=== PATIENT | female | born 1955 | race Caucasian/White ===

== ENCOUNTER 2022-10-19 09:54 | Observation (INO) ==
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
[2022-10-19] MEDS ORDERED: MoRPHine SULFATE 4 MG/ML 1 ML CARP\\VIAL IV STA (10:04)
[2022-10-19] MEDS ORDERED: ONDANSETRON INJ 2 MG/ML 2 ML VIAL IV STA (10:04)
[2022-10-19] MEDS ORDERED: SODIUM CHLORIDE 0.9% 500 ML IV SCH (10:15)
[2022-10-19 10:33] LABS: Basophils # (auto) 0.04 K/uL (0-0.2); Basophils % (auto) 0.7 %; Eosinophils # (auto) 0.09 K/uL (0-0.50); Eosinophils % (auto) 1.6 %; Immature Granulocytes # (auto) 0.02 K/uL (0.01-0.20); Immature Granulocytes % (auto) 0.3 %; Lymphocytes # (auto) 1.97 K/uL (1.2-3.4); Lymphocytes % (auto) 34.3 %; Mean Corpuscular Hemoglobin 32.8 pg (25.0-34.0); Mean Corpuscular Hgb Conc 34.2 g/dL (32.0-36.0); Mean Platelet Volume 10.2 fL (9.4-12.4); Monocytes # (auto) 0.64 K/uL (0.11-0.59); Monocytes % (auto) 11.1 %; Neutrophils # (auto) 2.98 K/uL (1.40-6.50); Platelet Count 230 K/uL (130-400); RDW Coefficient of Variation 12.8 % (11.5-14.5); RDW Standard Deviation 45.2 fL (36.4-46.3); Red Blood Count 3.96 M/uL (4.20-5.40); White Blood Count 5.74 K/ul (4.8-10.8)
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
[2022-10-19 10:48] LABS: BUN Creatinine Ratio 16.9 (10-20); Calcium 8.8 mg/dl (8.6-10.3); Creatinine Clr Calc Pharmacy 67.2 ml/min; Est GFR (African American) 101.4 ml/min; Est GFR (Non-African American) 87.5 ml/min; Potassium 3.4 mmol/L (3.5-5.1)
--- NOTE | 2022-10-19 10:49 | XRay Report ---
XR shoulder LT min 2V routine CLINICAL HISTORY: pain post fall TECHNIQUE: 2 views of the left shoulder were obtained. Comparison: None available at the time of this dictation. FINDINGS: There is no evidence of an acute fracture. Joint spaces are well-preserved. The overlying soft tissue s are unremarkable. The visualized portions of the lungs are clear. IMPRESSION: No evidence of acute osseous injury. ACT 112: Negative or not required by law. Electronically signed by: Hunter Villanueva M.D. 10/19/2022 10:47 AM
[2022-10-19] MEDS ORDERED: MoRPHine SULFATE 10 MG/ML CARP/VIAL IV STA (11:13)
[2022-10-19] MEDS ORDERED: KETOROLAC TROMETHAMINE 15 MG/ML VIAL IV ONE (11:42)
--- NOTE | 2022-10-19 11:51 | Orthopedic Consultation ---
Date of Consultation October 19, 2022 Assessment & Plan (1) Volar Lagos's fracture of left radius: Discussed with the patient that this is an unstable pattern injury that is notoriously difficult to treat without surgery. Therefore surgery was the recommended treatment. Plan will be for an open reduction internal fixation with a volar plate. I reviewed the risks and benefits of the surgery, alternatives, and expected outcomes. She elects to proceed with surgery. She would like to have the surgery done as soon as possible. I told her we could do it this afternoon when she is cleared by anesthesia given that she had some food and drink this morning. Plan on admitting her overnight for pain control. Given the vomiting she had with the morphine she was prescribed in the emergency room I think she would greatly benefit from a regional block in order to decrease the amount of narcotics needed after surgery. She understands that her hand and fingers will be numb after the surgery because of the block and therefore we will not be able to specifically assess the state of her nerves until the block is worn off. I did discuss the possibility of doing a concurrent carpal tunnel release, however patient would not like to have this done, and we will respect her wishes. She understands however that it may become necessary to do a carpal tunnel release in the future depending on her symptoms. History of Present Illness Reason for Consultation: Left distal radius fracture Requesting Physician: Dr. Paul History of Present Illness 67-year-old female, [id number], with a medical history significant for osteopenia, tripped and fell while walking this morning landing onto her left hand and wrist. She had immediate onset of pain and deformity. She presented to the emergency room where x-rays were obtained demonstrating a volar Lagos pattern distal radius fracture with displacement. Orthopedics was consulted for further evaluation. Patient was seen and examined in the emergency room. She reports numbness and tingling in all of her fingers. She has had some on and off wrist pain in the past and rare episodes of numbness, but has never had any nerve testing or had a formal diagnosis of carpal tunnel syndrome. She lives alone. Last meal was this morning when she had some cinnamon toast before 9 AM as well as some coffee and water. Allergies Allergy/AdvReac Type Severity Reaction Status Date / Time gluten Allergy Severe CELIAC Verified 05/18/21 09:39 DISEASE ciprofloxacin Allergy Intermediate FACIAL Verified 05/18/21 09:39 SWELLING aspirin AdvReac Intermediate Gastrointestinal Verified 05/18/21 09:39 Upset fentanyl AdvReac Intermediate VOMITING Verified 05/18/21 09:39 FOR 12 HOURS midazolam AdvReac Intermediate VOMITING Verified 05/18/21 09:39 FOR 12 HOURS propoxyphene [From Darvon] AdvReac Intermediate Gastrointestinal Verified 05/18/21 09:39 Upset Home Medications Medication Instructions Recorded Confirmed Type Multiple Vitamin & Suppliments 1 dose PO DAILY 03/09/21 05/18/21 History Patient History Medical History No pertinent past medical history Family History Brother Alcohol abuse Dementia Brother Congenital kidney disease Prostate cancer Hypertension Father Prostate cancer Hypertension Myocardial infarction Grandmother (Maternal) Gall bladder disease Myocardial infarction Aunt Breast cancer Uncle Alcohol abuse Denies family history of Ovarian cancer Colorectal cancer Social History Smoking Status: Never smoker Second Hand Exposure: Yes; Do You Dip or Chew Tobacco: No; Hx Alcohol Use: No Hx Substance Use: No Preferred Language: Bahraini Communication Ability: Effective Visual Impairment: No Limitations Hearing Ability: Normal Manager Department Required: No marital status: Single Current Living Situation: Alone current occupational status: employed Feels Safe at Home: No Childhood Exposure to Second-Hand Smoke: Yes Diet: gluten free, lactose free and regular Dental Care, Regularly: No Physical Activity Frequency: Daily Seatbelt Use: always Sunscreen Use: No Assistive Devices: Glasses Physical Exam Physical Exam: On exam she is a pleasant female in no acute distress. She is nauseated and did have some emesis in the emergency room. Left upper extremity exam reveals patient have swelling and deformity at the left wrist. There is a small abrasion superficial in nature measuring approximately one by one and half centimeters just radial to the dorsal aspect o f the ulnar styloid. Does not appear to communicate with the fracture of the ulnar styloid. She has decreased sensation to light touch in the median nerve distribution more than the ulnar nerve distribution. Sensory intact to moving light touch in the radial nerve distribution. She is able to fire her index finger abductor, and minimally fires her EPL and FPL limited secondary to pain. Fingers are warm and well-perfused. Results & Data Vital Signs (Past 12 Hours) Vital Signs Temp Pulse Resp BP Pulse Ox O2 Del Method 10/19/22 10:04 95 Room Air 10/19/22 10:01 36.5 C 57 L 18 98/58 L 98 Room Air Diagnostic Findings X-rays done in the emergency room demonstrate an ulnar styloid fracture as well as a volar Lagos pattern distal radius fracture with comminution.
[2022-10-19 12:22] LABS: Partial Thromboplastin Time 29.1 Seconds (21.0-31.0); Prothrombin Time 11.4 Seconds (9.0-12.0)
--- NOTE | 2022-10-19 12:47 | Electrocardiogram Report ---
Test Reason : Blood Pressure : / mmHG Vent. Rate : 058 BPM Atrial Rate : 058 BPM P-R Int : 138 ms QRS Dur : 074 ms QT Int : 460 ms P-R-T Axes : 059 047 048 degrees QTc Int : 451 ms Sinus bradycardia Otherwise normal ECG No previous ECGs available Confirmed by Jesus Arias ([id number]) on 10/19/2022 12:46:48 PM Referred By: Confirmed By:Jesus Arias
[2022-10-19] MEDS ORDERED: SODIUM CHLORIDE 0.9% 1000ML 500 ML IV ONE (13:12)
--- NOTE | 2022-10-19 16:15 | History & Physical Report ---
Date of Service October 19, 2022 Assessment & Plan (1) Volar Lagos's fracture of left radius: Plan: Discussed with the patient that this is an unstable pattern injury that is notoriously difficult to treat without surgery. Therefore surgery was the recommended treatment. Plan will be for an open reduction internal fixation with a volar plate. I reviewed the risks and benefits of the surgery, alternatives, and expected outcomes. She elects to proceed with surgery. She would like to have the surgery done as soon as possible. I told her we could do it this afternoon when she is cleared by anesthesia given that she had some food and drink this morning. Plan on admitting her overnight for pain control. Given the vomiting she had with the morphine she was prescribed in the emergency room I think she would greatly benefit from a regional block in order to d ecrease the amount of narcotics needed after surgery. She understands that her hand and fingers will be numb after the surgery because of the block and therefore we will not be able to specifically assess the state of her nerves until the block is worn off. I did discuss the possibility of doing a concurrent carpal tunnel release, however patient would not like to have this done, and we will respect her wishes. She understands however that it may become necessary to do a carpal tunnel release in the future depending on her symptoms. Operating room was not available until late this evening to do her surgery. Discussed with patient that it would be in her best interests if we try to do this tomorrow during daylight hours, with no significant downside to waiting until tomorrow. She will be splinted in the ER, and admitted to the hospital overnight for pain control. She can have a diet until midnight tonight, then NPO after midnight. Encounter type: initial encounter Fracture type: closed Qualified Code(s): S52.562A - Lagos's fracture of left radius, initial encounter for closed fracture History of Present Illness Chief Complaint: Left distal radius fracture Primary Care Provider: NO PCP 67-year-old female, [id number], with a medical history significant for osteopenia, tripped and fell while walking this morning landing onto her left hand and wrist. She had immediate onset of pain and deformity. She presented to the emergency room where x-rays were obtained demonstrating a volar Lagos pattern distal radius fracture with displacement. Orthopedics was consulted for further evaluation. Patient was seen and examined in the emergency room. She reports numbness and tingling in all of her fingers. She has had some on and off wrist pain in the past and rare episodes of numbness, but has never had any nerve testing or had a formal diagnosis of carpal tunnel syndrome. She lives alone. Last meal was this morning when she had some cinnamon toast before 9 AM as well as some coffee and water. Allergies Allergy/AdvReac Type Severity Reaction Status Date / Time gluten Allergy Severe CELIAC Verified 10/19/22 12:07 DISEASE acetaminophen [From Tylenol] Allergy Intermediate Gastrointestinal Unverified 10/19/22 12:07 Upset ciprofloxacin Allergy Intermediate FACIAL Verified 10/19/22 12:07 SWELLING aspirin AdvReac Intermediate Gastrointestinal Verified 10/19/22 12:07 Upset fentanyl AdvReac Intermediate VOMITING Verified 10/19/22 12:07 FOR 12 HOURS midazolam AdvReac Intermediate VOMITING Verified 10/19/22 12:07 FOR 12 HOURS propoxyphene [From Darvon] AdvReac Intermediate Gastrointestinal Verified 10/19/22 12:07 Upset Home Medications Medication Instructions Recorded Confirmed Type cholecalciferol (vitamin D3) 50 50 mcg PO DAILY 10/19/22 10/19/22 History mcg (2,000 unit) capsule (Vitamin D3) grape seed extract 50 mg capsule 0 mg PO DAILY 10/19/22 10/19/22 History magnesium oxide 250 mg PO BID 10/19/22 10/19/22 History Past Med/Surg History Medical History No pertinent past medical history Surgical History H/O colonoscopy Family History Brother Alcohol abuse Dementia Brother Congenital kidney disease Prostate cancer Hypertension Father Prostate cancer Hypertension Myocardial infarction Grandmother (Maternal) Gall bladder disease Myocardial infarction Aunt Breast cancer Uncle Alcohol abuse Denies family history of Ovarian cancer Colorectal cancer Social History Smoking Status: Never smoker Second Hand Exposure: Yes; Do You Dip or Chew Tobacco: No; Hx Alcohol Use: No Hx Substance Use: No Preferred Language: Taiwanese Communication Ability: Effective Visual Impairment: No Limitations Hearing Ability: Normal Bank Advisor Required: No marital status: Single Current Living Situation: Alone current occupational status: employed Feels Safe at Home: No Childhood Exposure to Second-Hand Smoke: Yes Diet: gluten free, lactose free and regular Dental Care, Regularly: No Physical Activity Frequency: Daily Seatbelt Use: always Sunscreen Use: No Assistive Devices: Glasses Review of Systems All systems reviewed & are unremarkable except as noted in Subjective Physical Exam Physical Exam: On exam she is a pleasant female in no acute distress. She is nauseated and did have some emesis in the emergency room. Left upper extremity exam reveals patient have swelling and deformity at the left wrist. There is a small abrasion superficial in nature measuring approximately one by one and half centimeters just radial to the dorsal aspect of the ulnar styloid. Does not appear to communicate with the fracture of the ulnar styloid. She has decreased sensation to light touch in the median nerve distribution more than the ulnar nerve distribution. Sensory intact to moving light touch in the radial nerve distribution. She is able to fire her index finger abductor, and minimally fires her EPL and FPL limited secondary to pain. Fingers are warm and well-perfused. Results & Data Vital Signs (Past 12 Hours) Vital Signs Temp Pulse Resp BP Pulse Ox O2 Del Method 10/19/22 16:11 61 10/19/22 12:13 55 L 10/19/22 10:04 95 Room Air 10/19/22 10:01 36.5 C 57 L 18 98/58 L 98 Room Air Diagnostic Findings Laboratory Results WBC 5.74 K/ul (4.8-10.8) 10/19/22 10:20 RBC 3.96 M/uL (4.20-5.40) L 10/19/22 10:20 Hgb 13.0 g/dl (12.0-16.0) 10/19/22 10:20 Hct 38.0 % (37.0-47.0) 10/19/22 10:20 MCV 96.0 fL (80.0-100.0) 10/19/22 10:20 MCH 32.8 pg (25.0-34.0) 10/19/22 10:20 MCHC 34.2 g/dL (32.0-36.0) 10/19/22 10:20 RDW Std Deviation 45.2 fL (36.4-46.3) 10/19/22 10:20 RDW Coeff of Etelvina 12.8 % (11.5-14.5) 10/19/22 10:20 Plt Count 230 K/uL (130-400) 10/19/22 10:20 MPV 10.2 fL (9.4-12.4) 10/19/22 10:20 Immature Gran % (Auto) 0.3 % 10/19/22 10:20 Neut % (Auto) 52.0 % 10/19/22 10:20 Lymph % (Auto) 34.3 % 10/19/22 10:20 Woodson % (Auto) 11.1 % 10/19/22 10:20 Eos % (Auto) 1.6 % 10/19/22 10:20 Baso % (Auto) 0.7 % 10/19/22 10:20 Neut # (Auto) 2.98 K/uL (1.40-6.50) 10/19/22 10:20 Lymph # (Auto) 1.97 K/uL (1.2-3.4) 10/19/22 10:20 Woodson # (Auto) 0.64 K/uL (0.11-0.59) H 10/19/22 10:20 Eos # (Auto) 0.09 K/uL (0-0.50) 10/19/22 10:20 Baso # (Auto) 0.04 K/uL (0-0.2) 10/19/22 10:20 Immature Gran # (Auto) 0.02 K/uL (0.01-0.20) 10/19/22 10:20 PT 11.4 Seconds (9.0-12.0) 10/19/22 11:29 INR 1.0 (0.9-1.1) 10/19/22 11:29 APTT 29.1 Seconds (21.0-31.0) 10/19/22 11: PTT Ratio 1.0 10/19/22 11:29 Sodium 137 mmol/L (136-145) 10/19/22 10:20 Potassium 3.4 mmol/L (3.5-5.1) L 10/19/22 10:20 Chloride 106 mmol/L (98-107) 10/19/22 10:20 Carbon Dioxide 25 mmol/L (21-32) 10/19/22 10:20 Anion Gap 6 (3-11) 10/19/22 10:20 BUN 12 mg/dl (6-23) 10/19/22 10:20 Creatinine 0.71 mg/dl (0.6-1.2) 10/19/22 10:20 Est Cr Clr Drug Dosing 67.2 ml/min 10/19/22 10:20 Est GFR ( Amer) 101.4 ml/min 10/19/22 10:20 Est GFR (Non-Af Amer) 87.5 ml/min 10/19/22 10:20 BUN/Creatinine Ratio 16.9 (10-20) 10/19/22 10:20 Glucose 127 mg/dl (70-99(Fasting)) H 10/19/22 10:20 Calcium 8.8 mg/dl (8.6-10.3) 10/19/22 10:20 SARS-CoV-2, RNA, NAAT NEGATIVE (NEGATIVE) 10/19/22 12:04 Blood Type O Positive 10/19/22 11:29 Antibody Screen NEGATIVE 10/19/22 11:29 Impressions Wrist X-Ray 10/19/22 10:05 XR wrist LT 2V CLINICAL HISTORY: likely BBFA frx TECHNIQUE: 4 views of the left wrist were obtained. Comparison: None available at the time of this dictation. FINDINGS: There is a fracture of the ulnar styloid as well as a anteriorly displaced fracture of the distal radial metadiaphysis. This latter fracture appears comminuted and to involve the articular surface. Soft tissue swelling is seen about the wrist. IMPRESSION: Displaced fractures of the distal radius and ulnar styloid with associated soft tissue swelling. Likely articular involvement. ACT 112: Negative or not required by law. Electronically signed by: Hunter Villanueva M.D. 10/19/2022 10:45 AM Shoulder X-Ray 10/19/22 10:23 XR shoulder LT min 2V routine CLINICAL HISTORY: pain post fall TECHNIQUE: 2 views of the left shoulder were obtained. Comparison: None available at the time of this dictation. FINDINGS: There is no evidence of an acute fracture. Joint spaces are well-preserved. The overlying soft tissues are unremarkable. The visualized portions of the lungs are clear. IMPRESSION: No evidence of acute osseous injury. ACT 112: Negative or not required by law. Electronically signed by: Hunter Villanueva M.D. 10/19/2022 10:47 AM
[2022-10-19] MEDS ORDERED: ACETAMINOPHEN 325 MG TAB PO PRN (16:20)
[2022-10-19] MEDS ORDERED: oxyCODONE/ACETAMINOPHEN 5mg/325mg TAB PO PRN (16:20)
[2022-10-19] MEDS ORDERED: ONDANSETRON INJ 2 MG/ML 2 ML VIAL IV PRN (16:20)
[2022-10-19] MEDS: MAGNESIUM OXIDE 400 MG TAB PO SCH (21:00)
[2022-10-20] MEDS ORDERED: ceFAZolin 2000MG 2,000 MG/15 ML SYR IV SCH ×2 (06:00)
[2022-10-20] MEDS: MAGNESIUM OXIDE 400 MG TAB PO SCH ×2 (07:24→20:06)
[2022-10-20] MEDS: CHOLECALCIFEROL 1,000 UNITS 25 MCG TAB PO SCH (07:24)
--- NOTE | 2022-10-20 09:06 | Orthopedic Progress Note ---
Date of Service October 20, 2022 Assessment & Plan (1) Volar Demond's fracture of left radius: Plan: proceed to operating room today for open reduction internal fixation of her left distal radius fracture. Readmitted to the hospital after surgery. N.p.o. on IV fluids until surgery Admission and Anticipated Discharge Date Admission Date: October 19, 2022 Subjective patient was splinted yesterday in the emergency room and admitted to the hospital overnight. She reports her pain is adequately controlled. Still experiencing some numbness in the tip of her fingers. Splint is fitting her well. Physical Exam Physical Exam: On exam she is a pleasant female in no acute distress. Left upper extremity exam reveals Splint to be in place. Exposed fingers demonstrate her to have She has decreased sensation to light touch in the median nerve distribution more than the ulnar nerve distribution. Sensory intact to moving light touch in the radial nerve distribution. She is able to fire her index finger abductor, and minimally fires her EPL and FPL limited secondary to pain. Fingers are warm and well-perfused. Results & Data Vital Signs (Past 12 Hours) Vital Signs Temp Pulse Resp BP Pulse Ox O2 Del Method 10/20/22 07:14 36.7 C 74 16 146/78 H 96 Room Air (1) Volar Demond's fracture of left radius Encounter type: initial encounter Fracture type: closed Qualified Code(s): S52.562A - Lagos's fracture of left radius, initial encounter for closed fracture
[2022-10-20] MEDS ORDERED: ROPIVACAINE 0.5% 5 MG/ML 30 ML VIAL ONE (10:13)
--- NOTE | 2022-10-20 12:49 | Anesthesiology Consultation ---
Date of Service October 20, 2022 Assessment & Plan (1) Encounter for pre-operative examination: Chart Review Chart Review: Acceptable Risk for Surgery History Surgery Operation Date: 10/20/22 13:30 Proposed Procedures p Left Distal Radius Fracture Open Reduction Internal Fixation - Romario Jewell MD Height/Weight Height: 5 ft 2 in Weight: 64.5 kg Allergies Allergy/AdvReac Type Severity Reaction Status Date / Time gluten Allergy Severe CELIAC Verified 10/19/22 12:07 DISEASE acetaminophen [From Tylenol] Allergy Intermediate Gastrointestinal Unverified 10/19/22 12:07 Upset ciprofloxacin Allergy Intermediate FACIAL Verified 10/19/22 12:07 SWELLING aspirin AdvReac Intermediate Gastrointestinal Verified 10/19/22 12:07 Upset fentanyl AdvReac Intermediate VOMITING Verified 10/19/22 12:07 FOR 12 HOURS midazolam AdvReac Intermediate VOMITING Verified 10/19/22 12:07 FOR 12 HOURS propoxyphene [From Darvon] AdvReac Intermediate Gastrointestinal Verified 10/19/22 12:07 Upset Medications Home Medications Medication Instructions Recorded Confirmed Last Taken cholecalciferol (vitamin D3) 50 50 mcg PO DAILY 10/19/22 10/19/22 10/19/22 mcg (2,000 unit) capsule (Vitamin D3) grape seed extract 50 mg capsule 0 mg PO DAILY 10/19/22 10/19/22 10/19/22 magnesium oxide 250 mg PO BID 10/19/22 10/19/22 10/19/22 Active Medications Generic Name Dose Route Start Last Admin Trade Name Freq PRN Reason Stop Dose Admin Magnesium Oxide 400 mg 10/19/22 21:00 10/20/22 07:24 Magnesium Oxide 400 Mg Tab PO 11/18/22 20:59 Not Given BID WILLIE Vitamin D 2,000 units 10/20/22 09:00 10/20/22 07:24 Cholecalciferol 1,000 Units 25 Mcg Tab PO 11/19/22 08:59 Not Given DAILY WILLIE NPO Date Last Intake of Fluids: 10/19/22 Time Last Intake of Fluids: 00:00 Date Last Intake of Solids: 10/19/22 Time Last Intake of Solids: 00:00 Past Medical History Medical History No pertinent past medical history Past Family History Family History Brother Alcohol abuse Dementia Brother Congenital kidney disease Prostate cancer Hypertension Father Prostate cancer Hypertension Myocardial infarction Grandmother (Maternal) Gall bladder disease Myocardial infarction Aunt Breast cancer Uncle Alcohol abuse Denies family history of Ovarian cancer Colorectal cancer Past Surgical History Surgical History H/O colonoscopy Social History Smoking Status: Never smoker Do You Dip or Chew Tobacco: No Hx Alcohol Use: Yes alcohol intake frequency: a few times a week Hx Substance Use: No substance use type: does not use Physical Exam Vital Signs Last Vital Signs Temp 36.7 C 10/20/22 07:14 Pulse 74 10/20/22 07:14 Resp 16 10/20/22 07:14 BP 146/78 H 10/20/22 07:14 Pulse Ox 96 10/20/22 07:14 O2 Del Method Room Air 10/20/22 07:14 Testing Laboratory Results 10/19/22 10:20 10/19/22 10:20 PT 11.4 Seconds (9.0-12.0) 10/19/22 11:29 INR 1.0 (0.9-1.1) 10/19/22 11:29 APTT 29.1 Seconds (21.0-31.0) 10/19/22 11:29 Blood Type O Positive 10/19/22 11:29 Antibody Screen NEGATIVE 10/19/22 11:29 Electrocardiogram Date: 10/19/22 Findings: + SB @ (58)
[2022-10-20] MEDS ORDERED: MIDAZOLAM HCL 1 MG/ML 2ML VIAL ONE ×3 (13:40→16:02)
[2022-10-20] MEDS ORDERED: fentaNYL citrate PF 100 MCG/2 ML VIAL ONE (13:40)
[2022-10-20] MEDS ORDERED: BUPIVACAINE 0.25% PF 30 ML VIAL ONE (13:42)
[2022-10-20] MEDS ORDERED: EPINEPHrine INJ 1 MG/ML AMP ONE (13:43)
[2022-10-20] MEDS ORDERED: DEXAMETHASONE SOD INJ 4 MG/ML VIAL ONE (13:43)
[2022-10-20] MEDS ORDERED: fentaNYL citrate PF 100 MCG/2 ML VIAL IV PRN (13:56)
[2022-10-20] MEDS ORDERED: ePHEDrine sulfate 50 MG/ML AMP IV PRN (13:56)
[2022-10-20] MEDS ORDERED: ATROPINE SULFATE 0.1 MG/ML 10ML SYR IV PRN (13:56)
[2022-10-20] MEDS ORDERED: ONDANSETRON INJ 2 MG/ML 2 ML VIAL IV PRN (13:56)
[2022-10-20] MEDS ORDERED: LIDOCAINE 2% 2 ML VIAL/AMP(20MG/ML) INFIL ONE (14:07)
[2022-10-20] MEDS ORDERED: ONDANSETRON INJ 2 MG/ML 2 ML VIAL ONE (14:07)
[2022-10-20] MEDS ORDERED: PROPOFOL IV EMULSION 10 MG/ML 20 ML VIAL IV ONE ×4 (14:07→16:12)
[2022-10-20] MEDS ORDERED: KETAMINE 50 MG/5 ML SYRINGE ONE (15:41)
--- NOTE | 2022-10-20 16:45 | Fluoroscopy Report ---
FL wrist LT 3V RTN CLINICAL HISTORY: LT ORIF DISTAL RADIUS *PT ATE TIME IS WHEN SHE CAN GO TO OR* TECHNIQUE: 2 views were obtained with the C-arm in the OR with the above procedure. Total fluoroscopy time was 16.9 seconds. Radiation dose was 0.44 mGy. Comparison: Comparison is made to left wrist radiographs 10/19/2022 FINDINGS/IMPRESSION: Intraoperative images were obtained of left distal radius open reduction interna l fixation. Please correlate with intraoperative fluoroscopy and operative report. ACT 112: Negative or not required by law. Electronically signed by: Hunter Villanueva M.D. 10/20/2022 4:43 PM
--- NOTE | 2022-10-20 17:34 | Operative Report ---
Post Operative Report Pre & Post Diagnosis Operation Date: 10/20/22 13:30 Pre-Op Diagnosis: left intra-articular comminuted distal radius fracture, volar Lagos pattern, involving greater than 3 fragments. Post-Op Diagnosis: left intra-articular comminuted distal radius fracture, volar Lagos pattern, involving greater than 3 fragments. I identified the patient and participated in the time-out.: Yes Procedure Operation Date: 10/20/22 13:30 Actual Procedures Open Reduction Internal Fixation of left intra-articular comminuted distal radius fracture, volar Lagos pattern, involving greater than 3 fragments. - Romario Jewell MD Surgeon Romario Jewell MD Front End Java Developer Norberto Sahu DO, and Sony Lei MS2 Estimated Blood Loss 10 Findings Consistent with Post-Op Diagnosis Specimens none Anesthesia Type MAC Regional Complications none Disposition Disposition: Recovery Room Indications 59-year-old female, fell yesterday while walking. She sustained a left comminuted intra-articular volar Lagos pattern fracture of her distal radius. This is an unstable pattern injury. Surgery is recommended treatment. I reviewed the risks and benefits of surgery, alternatives to surgery, and expected outcomes. After reviewing all these she elected to proceed with surgery. All questions were answered. Informed consent was signed. Description of Procedure Patient was identified in the preoperative holding area where her surgical site was marked. She was given a regional block by anesthesia, then brought back to the main operating room where she was placed on the operating room table and IV sedation was administered. All bony prominences were padded. Perioperative antibiotics were administered. She was prepped and draped in the usual sterile fashion. Prior to incision a multidisciplinary timeout was called. All in the room were in agreement. We began by exsanguinating the limb with an Esmarch bandage. Tourniquet was inflated to 250 mmHg. An 8 cm long incision was made Overlying the FCR tendon for a volar Leo approach to the wrist. we dissected down through the subcutaneous tissues to the level of the FCR tendon. the fascia overlying the FCR was incised in line with the incision. FCR was retracted ulnarly. The deep fascial layer was then incised. Flexor digitorum superficialis and FDP tendons were retracted ulnarly along with the median nerve and Parona space was entered. The pronator quadratus was then reflected from radial to ulnar exposing the fracture and associated hematoma. Fracture site was irrigated out and hematoma was removed with suction. Fracture site was inspected. There was displacement of the fragment volarly as seen on her previous x-rays. Comminution was also noted along both the radial and ulnar sides of the fracture. However these fragments were small. We then were able to obtain an anatomic reduction by using a freer elevator to lever the main volar cortical fragment proximally and dorsally while holding traction on the wrist. We could visualize excellent reduction. We then brought up a BiomPar[employer]ine DVR narrow width 3-hole plate for a left wrist. This was secured to the bone using K wires. C-arm fluoroscopy was brought in to check the position of the plate and our reduction. Small modifications were made to the position of the plate and then a 3.5 mm cortical screw was placed through the oblong hole to secure the plate to the bone. A second 3.5 mm cortical screw was placed buttressing the volar Lagos fragment in its appropriate position. We then placed 2 unicortical locking screws through the plate. C-arm fluoroscopy was brought in and we checked the screw lengths and position of the plate as well as the reduction all of which we are very happy with. Next, the remaining 3.5 mm cortical screw was placed proximally. The remaining distal locking screws were placed once again in unicortical fashion. Final fluoroscopic images were then obtained. Again we were happy with our screw lengths, plate position, and reduction of the fracture. At this point the tourniquet was let down and meticulous hemostasis was ensured. Deep dermal layer was closed with 3-0 Vicryl sutures. The skin was closed with 3 oh nylons. Patient was placed in a volar plaster slab splint with the wrist held at neutral. She was then awoken from her sedation and transferred to the recovery room in stable condition. Postoperative course: Patient will be admitted overnight for pain control, IV antibiotics, and monitoring. We will plan on discharging her home tomorrow. 2 weeks from now she will follow-up in our clinic for transition to a thermoplastic splint. She will begin immediate range of motion exercises of her fingers starting today. No DVT prophylaxis is indicated for this small upper extremity joint surgery. I attest to the content of the Intraoperative Record and any orders documented therein. Any exceptions are noted below.
--- NOTE | 2022-10-20 17:35 | Anesthesiology Progress Note ---
Date of Service October 20, 2022 Anesthesia Post Procedure Vital Signs Vital Signs: Temp Pulse Pulse Pulse Resp BP BP 10/20/22 17:25 80 22 156/98 H 10/20/22 17:15 36.7 C 82 20 150/96 H 10/20/22 17:05 88 18 154/96 H 10/20/22 16:55 36.6 C 94 H 14 155/102 H 10/20/22 14:50 83 18 142/93 H 10/20/22 13:13 37.1 C 79 18 142/92 H 10/20/22 07:14 36.7 C 74 16 146/78 H 10/19/22 19:45 36.7 C 71 18 137/88 10/19/22 18:00 66 17 10/19/22 18:00 137/80 Pulse Ox O2 Del Method O2 Flow Rate 10/20/22 17:25 95 Room Air 10/20/22 17:15 96 Room Air 10/20/22 17:05 97 Oxymask 4 10/20/22 16:55 94 Oxymask 6 10/20/22 14:50 99 Room Air 10/20/22 13:13 95 Room Air 10/20/22 07:14 96 Room Air 10/19/22 19:45 98 Room Air 10/19/22 18:00 10/19/22 18:00 Pain Intensity Left Wrist: Pain Intensity: 5 Transfer of Care Handoff Completed per policy Notes Mental Status: alert / awake / arousable and participated in evaluation Patient Amnestic to Procedure: Yes Nausea / Vomiting: adequately controlled Pain: adequately controlled Airway Patency, RR, SpO2: stable & adequate BP & HR: stable & adequate Hydration State: stable & adequate Anesthetic Complications: no major complications apparent and Pt Satisfied with anesthetic care
[2022-10-20] MEDS ORDERED: HYDROmorphone INJ 0.5 MG/0.5 ML SYR IV PRN (17:40)
[2022-10-20] MEDS ORDERED: HYDROmorphone INJ 1 MG/ML SYRINGE IV PRN (17:40)
[2022-10-20] MEDS ORDERED: bisacodyL 10 MG SUPP PR PRN (17:40)
[2022-10-20] MEDS ORDERED: MAGNESIUM HYDROXIDE SUSP 30 ML UDC PO PRN (17:40)
[2022-10-20] MEDS ORDERED: SODIUM CHLORIDE 0.9% 1000ML 1,000 ML IV SCH (17:40)
[2022-10-20] MEDS ORDERED: NALOXONE HCL 0.4 MG/1 ML VIAL/CARP IV PRN (17:40)
[2022-10-20] MEDS ORDERED: METOCLOPRAMIDE HCL INJ 5 MG/ML 2 ML VIAL IV PRN (17:40)
[2022-10-20] MEDS: DOCUSATE SODIUM 100 MG CAP PO SCH (20:06)
[2022-10-20] MEDS ORDERED: SENNA 8.6 MG TAB PO SCH (21:00)
[2022-10-20] MEDS: ceFAZolin 2000MG 2,000 MG/15 ML SYR IV SCH (22:53)
[2022-10-21] MEDS: ceFAZolin 2000MG 2,000 MG/15 ML SYR IV SCH (06:35)
[2022-10-21] MEDS: MAGNESIUM OXIDE 400 MG TAB PO SCH (08:39)
[2022-10-21] MEDS: CHOLECALCIFEROL 1,000 UNITS 25 MCG TAB PO SCH (08:39)
[2022-10-21] MEDS: DOCUSATE SODIUM 100 MG CAP PO SCH (08:40)
[2022-10-21] MEDS ORDERED: MULTIVITAMIN TAB PO SCH (09:00)
--- NOTE | 2022-10-21 09:19 | Orthopedic Progress Note ---
Date of Service October 21, 2022 Assessment & Plan (1) Volar Demond's fracture of left radius: Plan: PT/OT Ice with easy wrap Pain control with p.o. medication DVT prophylaxis with aspirin Keep splint and sling in place until 2-week follow-up Come out of sling to work on range of motion of elbow and fingers No lifting more than a coffee cup with left upper extremity Follow-up at [facility] orthopedics as scheduled With questions contact our clinic at [phone] Admission and Anticipated Discharge Date Admission Date: October 19, 2022 Subjective This 67-year-old female seen this morning day 1 status post open reduction internal fixation for left distal radius fracture. She states that the block still in effect and her arm is completely numb. She is able to feel some tingling sensation over the pads of her digits. She states her pain is well controlled at this point. She states she most likely will need some sort of pain relieving agents at home with. Currently she denies chest pain, shortness of breath, fever, chills, sweats, nausea, vomiting, diarrhea or difficulty voiding. She feels that she should be ready to go home later today. Review of Systems Review of Systems: All systems reviewed & are unremarkable except as noted in Subjective Physical Exam Physical Exam: Left upper extremity: Dressing and splint are clean dry and intact. They were left in place. Patient is able to detect light sensation to touch over the pads of all digits. She does have some swelling that tracks to the distal aspect of the digits. She is able to actively reach terminal flexion extension at her elbow without pain or difficulty. Her capillary fill is less than 2 seconds. She does have some tenderness to palpation over the dorsal aspect of her wrist at the site of the fracture. Results & Data Vital Signs (Past 12 Hours) Vital Signs Temp Pulse Resp BP Pulse Ox O2 Del Method 10/21/22 06:48 36.8 C 78 16 125/78 94 Room Air 10/21/22 03:13 36.9 C 60 16 126/71 94 Room Air 10/20/22 22:47 36.8 C 77 18 143/80 H 95 Room Air Diagnostic Findings Laboratory Results WBC 5.74 K/ul (4.8-10.8) 10/19/22 10:20 RBC 3.96 M/uL (4.20-5.40) L 10/19/22 10:20 Hgb 13.0 g/dl (12.0-16.0) 10/19/22 10:20 Hct 38.0 % (37.0-47.0) 10/19/22 10:20 MCV 96.0 fL (80.0-100.0) 10/19/22 10:20 MCH 32.8 pg (25.0-34.0) 10/19/22 10:20 MCHC 34.2 g/dL (32.0-36.0) 10/19/22 10:20 RDW Std Deviation 45.2 fL (36.4-46.3) 10/19/22 10:20 RDW Coeff of Etelvina 12.8 % (11.5-14.5) 10/19/22 10:20 Plt Count 230 K/uL (130-400) 10/19/22 10:20 MPV 10.2 fL (9.4-12.4) 10/19/22 10:20 Immature Gran % (Auto) 0.3 % 10/19/22 10:20 Neut % (Auto) 52.0 % 10/19/22 10:20 Lymph % (Auto) 34.3 % 10/19/22 10:20 Boyd % (Auto) 11.1 % 10/19/22 10:20 Eos % (Auto) 1.6 % 10/19/22 10:20 Baso % (Auto) 0.7 % 10/19/22 10:20 Neut # (Auto) 2.98 K/uL (1.40-6.50) 10/19/22 10:20 Lymph # (Auto) 1.97 K/uL (1.2-3.4) 10/19/22 10:20 Boyd # (Auto) 0.64 K/uL (0.11-0.59) H 10/19/22 10:20 Eos # (Auto) 0.09 K/uL (0-0.50) 10/19/22 10:20 Baso # (Auto) 0.04 K/uL (0-0.2) 10/19/22 10:20 Immature Gran # (Auto) 0.02 K/uL (0.01-0.20) 10/19/22 10:20 PT 11.4 Seconds (9.0-12.0) 10/19/22 11: INR 1.0 (0.9-1.1) 10/19/22 11: APTT 29.1 Seconds (21.0-31.0) 10/19/22 11: PTT Ratio 1.0 10/19/22 11:29 Sodium 137 mmol/L (136-145) 10/19/22 10:20 Potassium 3.4 mmol/L (3.5-5.1) L 10/19/22 10:20 Chloride 106 mmol/L (98-107) 10/19/22 10:20 Carbon Dioxide 25 mmol/L (21-32) 10/19/22 10:20 Anion Gap 6 (3-11) 10/19/22 10:20 BUN 12 mg/dl (6-23) 10/19/22 10:20 Creatinine 0.71 mg/dl (0.6-1.2) 10/19/22 10:20 Est Cr Clr Drug Dosing 67.2 ml/min 10/19/22 10:20 Est GFR ( Amer) 101.4 ml/min 10/19/22 10:20 Est GFR (Non-Af Amer) 87.5 ml/min 10/19/22 10:20 BUN/Creatinine Ratio 16.9 (10-20) 10/19/22 10:20 Glucose 127 mg/dl (70-99(Fasting)) H 10/19/22 10:20 Calcium 8.8 mg/dl (8.6-10.3) 10/19/22 10:20 SARS-CoV-2, RNA, NAAT NEGATIVE (NEGATIVE) 10/19/22 12:04 Blood Type O Positive 10/19/22 11:29 Antibody Screen NEGATIVE 10/19/22 11:29 Impressions Shoulder X-Ray 10/19/22 10:23 XR shoulder LT min 2V routine CLINICAL HISTORY: pain post fall TECHNIQUE: 2 views of the left shoulder were obtained. Comparison: None available at the time of this dictation. FINDINGS: There is no evidence of an acute fracture. Joint spaces are well-preserved. The overlying soft tissues are unremarkable. The visualized portions of the lungs are clear. IMPRESSION: No evidence of acute osseous injury. ACT 112: Negative or not required by law. Electronically signed by: Hunter Villanueva M.D. 10/19/2022 10:47 AM Wrist X-Ray 10/20/22 13:30 FL wrist LT 3V RTN CLINICAL HISTORY: LT ORIF DISTAL RADIUS *PT ATE TIME IS WHEN SHE CAN GO TO OR* TECHNIQUE: 2 views were obtained with the C-arm in the OR with the above procedure. Total fluoroscopy time was 16.9 seconds. Radiation dose was 0.44 mGy. Comparison: Comparison is made to left wrist radiographs 10/19/2022 FINDINGS/IMPRESSION: Intraoperative images were obtained of left distal radius open reduction internal fixation. Please correlate with intraoperative fluoroscopy and operative report. ACT 112: Negative or not required by law. Electronically signed by: Hunter Villanueva M.D. 10/20/2022 4:43 PM (1) Volar Lagos's fracture of left radius Encounter type: initial encounter Fracture type: closed Qualified Code(s): S52.562A - Lagos's fracture of left radius, initial encounter for closed fracture
--- NOTE | 2022-10-21 11:05 | Discharge Summary ---
Date of Service October 21, 2022 Admission HPI Per Admitting Provider 67-year-old female, [id number], with a medical history significant for osteopenia, tripped and fell while walking this morning landing onto her left hand and wrist. She had immediate onset of pain and deformity. She presented to the emergency room where x-rays were obtained demonstrating a volar Lagos pattern distal radius fracture with displacement. Orthopedics was consulted for further evaluation. Patient was seen and examined in the emergency room. She reports numbness and tingling in all of her fingers. She has had some on and off wrist pain in the past and rare episodes of numbness, but has never had any nerve testing or had a formal diagnosis of carpal tunnel syndrome. She lives alone. Last meal was this morning when she had some cinnamon toast before 9 AM as well as some coffee and water. Admission Exam Per Admitting Provider Physical Exam Physical Exam: On exam she is a pleasant female in no acute distress. She is nauseated and did have some emesis in the emergency room. Left upper extremity exam reveals patient have swelling and deformity at the left wrist. There is a small abrasion superficial in nature measuring approximately one by one and half centimeters just radial to the dorsal aspect of the ulnar styloid. Does not appear to communicate with the fracture of the ulnar styloid. She has decreased sensation to light touch in the median nerve distribution more than the ulnar nerve distribution. Sensory intact to moving light touch in the radial nerve distribution. She is able to fire her index finger abductor, and minimally fires her EPL and FPL limited secondary to pain. Fingers are warm and well-perfused. Principal Diagnosis Left distal radius fracture Discharge Exam Left upper extremity: Dressing and splint are clean dry and intact. They were left in place. Patient is able to detect light sensation to touch over the pads of all digits. She does have some swelling that tracks to the distal aspect of the digits. She is able to actively reach terminal flexion extension at her elbow without pain or difficulty. Her capillary fill is less than 2 seconds. She does have some tenderness to palpation over the dorsal aspect of her wrist at the site of the fracture. Discharge Data Allergies Allergy/AdvReac Type Severity Reaction Status Date / Time gluten Allergy Severe CELIAC Verified 10/19/22 12:07 DISEASE acetaminophen [From Tylenol] Allergy Intermediate Gastrointestinal Unverified 10/19/22 12:07 Upset ciprofloxacin Allergy Intermediate FACIAL Verified 10/19/22 12:07 SWELLING aspirin AdvReac Intermediate Gastrointestinal Verified 10/19/22 12:07 Upset fentanyl AdvReac Intermediate VOMITING Verified 10/19/22 12:07 FOR 12 HOURS midazolam AdvReac Intermediate VOMITING Verified 10/19/22 12:07 FOR 12 HOURS propoxyphene [From Darvon] AdvReac Intermediate Gastrointestinal Verified 10/19/22 12:07 Upset Consultations 10/19/22 11:18 ED Decision to Admit Stat Procedures Performed Operation Date: 10/20/22 13:30 Actual Procedures p Left Distal Radius Fracture Open Reduction Internal Fixation(Left) - Romario Jewell MD Ordered Studies 10/19/22 15:28 US - OR guided needle placemen Routine 10/20/22 13:30 FL wrist LT 3V RTN Routine 10/20/22 13:56 US - OR guided needle placemen Routine Hospital Course (1) Volar Lagos's fracture of left radius: Patient was initially seen in consultation in the emergency department for her left wrist fracture. Due to additional cases being added on on October 19 patient surgery was pushed until the during Dr. Jewell scheduled surgery time at the [facility]. We did keep the patient overnight following surgery for pain control and to do PT and OT. Before being discharged. Patient essentially had uneventful 2 night stay. She states that she will have some friends help her out at home because she lives by herself. PT/OT Ice with easy wrap Pain control with p.o. medication DVT prophylaxis with aspirin Keep splint and sling in place until 2-week follow-up Come out of sling to work on range of motion of elbow and fingers No lifting more than a coffee cup with left upper extremity Follow-up at [facility] orthopedics as scheduled With questions contact our clinic at [phone] Total Time Total Time Spent Total Time Spent (In Minutes): 20 mins Discharge Plan Discharge Items Patient Disposition: Home - Self-Care Reason For Visit: LEFT DISTAL RADIUS FRACTURE (SURGERY TOMORROW) Discharge Diagnosis: left distal radius fracture Activity: Per Instructions section Weightbearing: Left non-weightbearing Weightbearing Comment: upper extremity Non-emergency contact: Surgeon Call non-emergency contact if: your symptoms worsen, your pain is not controlled, your temperature is above 101, your wound has increased redness and your wound has increased drainage Follow-up/Referrals: Samy Serrano PA-C [Physician [employer]or] - 11/03/22 10:00 am PCP,SHILPI [Primary Care Provider] - Diet: Regular Addtl Attending Provider Instructions: Post-operative Instructions Dear Patient and Family/Friends, Before you are discharged from the hospital, it is important to know what to expect when you get home after surgery. To that end, we have created this sheet of discharge instructions which covers many commonly asked questions. Make sure you go through this sheet in its entirety with your nurse before you are discharged. Please note that we will go over the specifics of your surgery and recovery when you return for your first post-operative visit. Sincerely, Dr. Jewell Medications 1. Oxycodone 5 mg: take 1-2 tabs every 4-6 hours as needed for post operative pain. This will be sent to your pharmacy. 2. Diclofenac Sodium 75 mg: take 1 tab twice daily for 30 days post operatively. This will also be sent to your pharmacy with 1 refill. 3. Aspirin 81 mg: take one tab daily for 30 days post operatively for blood clot prevention. Please purchase 4. Extra Strength Tylenol 500 mg: take 2 tabs every 6-8 hours as needed for additional pain relief. Please purchase. Pain Expect to be in a fair amount of pain after surgery. Remember, our goal is not to eliminate your pain, but to make it tolerable. It is a good idea to stay ahead of your pain by taking the medications you were prescribed once you get home. Typically, the pain starts improving 3-7 days after surgery. You should start weaning off the narcotic pain medication (oxycodone, hydrocodone, hydromorphone, morphine) as soon as your pain improves. Please call our office if your pain is not adequately controlled. Ice Ice your operative site at least 5 times a day for 15-30 minutes at a time. Make sure you have a thin cloth between the ice or cooling unit and your skin to prevent marsh bite. This is especially important if you received a nerve block. Continue icing your operative site for the first 5-7 days after surgery, then as needed. Diet/Nausea/Vomiting Start by drinking clear liquids and eating crackers. If you can tolerate this, then you may resume your normal diet. If you feel nauseated or vomit, take Zofran/ondansetron (if prescribed). Please call our office if you have intractable nausea or vomiting, or, if after hours, you may go to the Emergency Room for help. Constipation Constipation is a common side effect of narcotic pain medication. If you have not had a bowel movement within 2 days after surgery, we recommend purchasing an over the counter laxative such as Milk of Magnesia, Dulcolax, or Miralax from a local pharmacy, and taking it as instructed. Call our clinic if any questions. Slings and Braces If you were placed in a sling or brace, it must be worn at all times, including sleep. You may remove your sling or brace for physical therapy, home exercises, and showering. The length of time you will be in your brace and range of motion restrictions depends on what surgery you had; these details will be reviewed at your first post-operative appointment. Nerve block The anesthesia team sometimes places a nerve block to help with post-operative pain control. This results in significant numbness and inability to move the extremity. The nerve block usually wears off in 8-12 hours, but sometimes can last up to 24 hours. Please call our office if you are still unable to move your extremity after 24 hours, unless you received a pain pump to take home. Nerve blocks typically wear off quickly, so start taking pain medication as soon as you start feeling soreness near your surgical site. Weight bearing and Range of Motion. Do not bear any weight through your operative extremity immediately after surgery. If you had upper extremity surgery, do not lift anything with that arm. If you are in a knee brace, keep it locked in place until your follow-up. We will discuss your weight bearing, range of motion, and lifting restrictions in detail at your first post-operative appointment. Continuous Passive Motion (CPM) Machine If you were prescribed a CPM machine, it will start after your first post-operative appointment, at which time we will give you instructions on the range of motion settings and duration of treatment Physical therapy You will be given a prescription for physical therapy or occupational therapy at your first post-operative appointment. Typically, patients start therapy within 1 week of surgery Wound care and showering We will inspect your wound at your first post-operative visit, and may do a dressing change at that time. Most patients will be in a water-proof dressing that is removed 14 days after surgery. It is normal to see some dried blood on the dressing. Do not remove your dressing, paper strips or sutures yourself unless you are given permission. Showering is allowed the day after surgery. Do not scrub or remove any dressings. The wound should not be submerged underwater (i.e. in a bathtub or pool) until 4 weeks after surgery JOSE ELIAS stockings If you were given white stockings, these are to be worn at all times except to shower (on both legs) for the first 2 weeks after surgery. Driving You may not drive while taking narcotic pain medication or while in a cast, splint, sling or brace. You, the patient, need to make the final determination about when you are safe to drive, however, the earliest you may consider driving after surgery is below: Hand/Wrist/Elbow Surgery: 3 days Shoulder Surgery: 2 weeks Hip,/Knee/Ankle Surgery: 4 weeks Fracture repair: 6 weeks Return to Work Your return to work depends on what surgery was done and what type of work you do. Please bring any paperwork your employer needs completed to your first post-operative visit. Also, bring a description of your job duties, as this helps us to understand what risks you may face at work. Travel Avoid long distance travel (greater than 1 hour) in airplanes and cars for the first 6 weeks after surgery. If you must travel, you need to have a Doppler ultrasound done before you travel to rule out a blood clot in your legs. Follow-up You should have a follow-up appointment already scheduled 1-2 days after surgery. If not, please contact our office to make this appointment before you leave the hospital. When to call the office It is normal to have swelling and bruising in the limb that was operated on. This will improve with time. It is also normal to have fevers for the first 2 days after surgery. Reasons you should call your doctor include: Uncontrolled pain; Nausea, vomiting, or constipation that does not improve with medication; Fevers over 101.5, chills, sweats; Drainage or bleeding from the wound; Foul odor; Spreading areas of redness; Any other concerns Pending Studies at Discharge: No Stand-Alone Forms: [facility], Pain - Opioid Pain Management, Smoking Cessation Medications and DC Order Prescriptions: New oxycodone-acetaminophen [Percocet] 5-325 mg Tablet 1 - 2 tab PO Q4H PRN (Reason: Post op pain control) Qty: 28 0RF aspirin 81 mg tablet,delayed release (DR/EC) 81 mg PO DAILY 30 Days Qty: 30 0RF diclofenac sodium 75 mg tablet,delayed release (DR/EC) 75 mg PO BID 30 Days Qty: 60 0RF acetaminophen [Tylenol Extra Strength] 500 mg tablet 1,000 mg PO Q6H PRN (Reason: pain) 30 Days Qty: 120 0RF Continued grape seed extract 50 mg Capsule 0 mg PO DAILY Rx Instructions: give with food (meal/snack). Pt doesn't remember exactly how many she takes magnesium oxide 250 mg magnesium Tablet 250 mg PO BID cholecalciferol (vitamin D3) [Vitamin D3] 50 mcg (2,000 unit) Capsule 50 mcg PO DAILY Discharge Orders: Discharge Order (Routine); Ordered 10/21/22 Ordered By: Samy Serrano Admission Data Admit Date/Time: 10/19/22 16:20 Attending Provider: Romario Jewell Admit Provider: Romario Jewell Primary Care Provider: PCP,NO Other Providers: Romario Jewell Other Interventions: Discharge Summary Assessment (RN) Last Done: 10/21/22 09:44
== END 2022-10-21 15:12 | disposition home or self-care (01) ==
LOC: 3N 09:54 → ED 09:54 → 3N 18:29